=== PATIENT | female | born 1960 | race Caucasian/White ===

== ENCOUNTER 2022-05-18 05:00 | Day surgery (SDC) | payer OTHER ==
[~2022-05-18] VITALS: Ht 157.5 cm; Wt 89.4 kg
[~2022-05-18 05:00] MED LIST: COZAAR25 MG PO
== END 2022-05-18 11:10 | disposition home or self-care (01) ==
LOC: CIR.AMB 05:00
PROVIDERS: ATTEND Specialist
DX: D17.24 Benign lipomatous neoplasm of skin and subcutaneous tissue of left leg (principal); R22.42 Localized swelling, mass and lump, left lower limb; Z11.52 Encounter for screening for COVID-19; I10 Essential (primary) hypertension; Z20.822 Contact with and (suspected) exposure to COVID-19; Z88.0 Allergy status to penicillin